=== PATIENT | male | born 1945 | race American Indian/Alaskan Native ===

== ENCOUNTER 2016-12-26 02:00 | Emergency (ER) | payer OTHER, MEDICARE ==
[~2016-12-26] VITALS: Ht 172.7 cm; Wt 77.1 kg
[~2016-12-26 02:00] MED LIST: ASPCH81 PO; CHOL100010 PO; METO25TA56 PO; OMEG10007 PO; PRLSR20 PO
[2016-12-26 02:05] VITALS: TEMP 36.9; Ht 172.7 cm; Wt 77.1 kg
[2016-12-26] MEDS ORDERED: LIDOCAINE/EPINEPHRINE 1% 20 ML VIAL ONE (02:14)
[2016-12-26 02:51] VITALS: BP 123/71; PULSE 71; O2SAT 98
[2016-12-26] MEDS ORDERED: ASPCH81X PO (02:52)
[2016-12-26] MEDS ORDERED: CLOP1TAB15 PO (02:52)
[2016-12-26] MEDS ORDERED: FEXO1TAB49 PO (02:53)
[2016-12-26] MEDS ORDERED: PSEU60TA80 PO (02:54)
[2016-12-26] MEDS ORDERED: SIMV40TA2 PO (02:55)
[2016-12-26] MEDS ORDERED: MULT-506 PO (03:01)
[2016-12-26] MEDS ORDERED: ATOR-26 PO (03:01)
[2016-12-26] MEDS ORDERED: RANI150T3 PO (03:02)
--- NOTE | 2016-12-27 07:46 | EMERGENCY ROOM VISIT NOTE ---
History First contact with patient: 02:09 Chief Complaint: LACERATION/CUT (SUT/DERMABOND) Stated Complaint: CUT ON INSIDE OF CHEEK Nursing Triage Summary: laceration to inside of right cheek. History of Present Illness The patient is a 71 year old male who presents to the Emergency Room with complaints of laceration to the inside of his right cheek. The patient states that he came tonight when he bit into his cheek. This occurred about 6 hours ago, and the patient continues to have bleeding from the inside of his mouth. He does not take blood thinners but is on daily aspirin. He does not have other injury or trauma. He rates his discomfort a /10. Review of Systems More than 6 systems were reviewed and otherwise negative with the exception of history of present illness. Past Medical/Surgical History No pertinent chronic medical disease Family History No pertinent family history Social History Smoking Status: Never Smoker Housing Status: lives with family Current/Historical Medications Scheduled Aspirin (Aspirin Chewable), 81 MG PO DAILY Atorvastatin (Lipitor), Unknown Dose PO DAILY Cholecalciferol (Vitamin D), 1,000 INTER.UNIT PO BID Fexofenadine Hcl (Fartun Allergy), 1 TAB PO DAILY Fish Oil ([place]-3), 1,000 MG PO BID Metoprolol Tartrate (Lopressor) (Lopressor), Unknown Dose PO DHS Multivitamin (Multivitamin), 1 TAB PO DAILY Ranitidine Hcl (Zantac), Unknown Dose PO DIRECTED Physical Exam Vital Signs Date Time Temp Pulse Resp B/P (MAP) Pulse Ox O2 Delivery O2 Flow Rate FiO2 12/26/16 02:51 71 16 123/71 98 12/26/16 02:05 36.9 65 20 134/85 97 Room Air Physical Exam VITALS: Vitals are noted on the nurse's note and reviewed by myself. Vital signs stable. GENERAL: Well-developed, well-nourished, white male, who is in no acute distress and resting comfortably. Patient is cooperative with the examination. MOUTH: Mucous membranes moist. Tonsils are not enlarged. Pharynx without erythema, blood, or exudate. Uvula midline. Airway patent. There is a very small subcentimeter macerated area along the inside of the right cheek posteriorly. There is a very small but persistent amount of active bleeding from this area. HEART: Regular rate and rhythm without murmurs gallops or rubs. LUNGS: Clear to auscultation bilaterally without wheezes, rales or rhonchi. No retractions or accessory muscle use. Medical Decision & Procedures ED Course Physical exam and history were performed. Nursing notes, EMR, and Medication List were personally reviewed. Patient appears to have a small amount of bleeding coming from the inside of his right cheek. It appears the patient bit into this area and macerated the tissue. The injury occurred about 6 hours ago the patient does have persistent bleeding. I discussed options of care with the patient, and we elected to inject the area with 2 mL's of 1% buffered lidocaine with epinephrine. The patient was monitored for about 30 minutes and had complete resolution of his bleeding. On reevaluation I do not see distinct laceration, and a good blood clot had formed. I suspect the patient will do well without further intervention. I did offer placement of a stitch if his symptoms returned. The patient should otherwise follow with his primary care physician. He was pleased with plan of care. The chart was completed utilizing [employer] Speech Voice Recognition Software. Grammatical errors, random word insertions, pronoun errors, and incomplete sentences are an occasional consequence of this system due to software limitations, ambient noise, and hardware issues. Any formal questions or concerns about the content, text, or information contained within the body of this dictation should be directly addressed to the provider for clarification. . Medical Decision Differential diagnosis includes, but is not limited to: Laceration, abrasion, coagulopathy, and others Impression Primary Impression: Bleeding in mouth Departure Information Dispostion Home / Self-Care Condition [employer] Forms HOME CARE DOCUMENTATION FORM, IMPORTANT VISIT INFORMATION Patient Instructions My [facility] Additional Instructions You were seen and evaluated today on an emergency basis only. This is not a substitute for, or an effort to provide, complete comprehensive medical care. It is not possible to recognize and treat all injuries or illnesses in a single emergency department visit. For this reason it is recommended that you followup with your primary care physician next week if symptoms persist. You are welcome to return to the emergency department anytime with new, worsening, or concerning symptoms.
== END 2016-12-26 02:52 | disposition home or self-care (01) ==
LOC: C.EDB 02:01 → C.EDC 02:52
DX: K13.79 Other lesions of oral mucosa (principal); Z79.82 Long term (current) use of aspirin